=== PATIENT | male | born 1970 | race Caucasian/White ===

== ENCOUNTER 2020-09-24 06:07 | Day surgery (SDC) | payer BC ==
[~2020-09-24] VITALS: Ht 175.3 cm; Wt 93.0 kg
[~2020-09-24 06:07] MED LIST: CALCIT950 PO; CELE100; CHOL10002 PO; CYAN1000 PO; Depo-Testos200 MG/ML; HYDR1TAB94 PO; Levaquin500 MG PO; Multivitamin1 EAC1 PO; POTA8; Testostero100 MG/1 M IM
[2020-09-24] MEDS ORDERED: TRAM50 PO (07:01)
[2020-09-24] MEDS ORDERED: TAMSULOSIN HCL0.4 M1 PO (07:01)
== END 2020-09-24 10:55 | disposition home or self-care (01) ==
LOC: ORSCSDS 06:07
PROVIDERS: Orthopaedic Surgery
PROC: 0RNK4ZZ Release Left Shoulder Joint, Percutaneous Endoscopic Approach (ICD-10-PCS; principal; 2020-09-24 07:30)
PROC: 0RBK4ZZ Excision of Left Shoulder Joint, Percutaneous Endoscopic Approach (ICD-10-PCS; principal; 2020-09-24 07:30)
PROC: 0LQ24ZZ Repair Left Shoulder Tendon, Percutaneous Endoscopic Approach (ICD-10-PCS; principal; 2020-09-24 07:30)
DX: M75.122 Complete rotator cuff tear or rupture of left shoulder, not specified as traumatic (principal); M75.42 Impingement syndrome of left shoulder; M75.22 Bicipital tendinitis, left shoulder; F17.220 Nicotine dependence, chewing tobacco, uncomplicated; E03.9 Hypothyroidism, unspecified; Z79.899 Other long term (current) drug therapy
CPT/HCPCS: 82947; A9270-GY; C1713; J0171; J0690; J1100; J2250; J2405; J2704; J2795; J3010; J7120